=== PATIENT | male | born 1995 | race Caucasian/White ===

== ENCOUNTER 2017-09-18 23:22 | Emergency (ER) | payer BC ==
[2017-09-18 23:28] VITALS: BP 137/74
[2017-09-18] MEDS ORDERED: IBUPROFEN 800 MG TABLET PO ONE (23:40)
--- NOTE | 2017-09-19 00:13 | ER Document Report ---
ED General - General Chief Complaint: Hand Injury Stated Complaint: LEFT HAND INJURY Time Seen by Provider: 09/18/17 23:36 Mode of Arrival: Ambulatory Information source: Patient TRAVEL OUTSIDE OF THE [place] IN LAST 30 DAYS: No - HPI Notes: Otherwise healthy 21-year-old white male presents to the emergency department with report that he tripped at about 1800 and struck his nondominant hand up against a metal cabinet handle injuring his left wrist. He denies any other injury, reporting no elbow pain or shoulder pain or numbness or paresthesia. No head injury or neck pain. No back pain. - Related Data Allergies/Adverse Reactions: No Known Allergies Allergy (Verified 09/18/14 12:08) Past Medical History - General Information source: Patient - Social History Smoking Status: Never Smoker Frequency of alcohol use: None Drug Abuse: None Lives with: Family Family History: Reviewed & Not Pertinent - Immunizations Immunizations up to date: Yes Hx Diphtheria, Pertussis, Tetanus Vaccination: Yes Review of Systems - Review of Systems -: Yes All other systems reviewed and negative Physical Exam - Vital signs Vitals: Temp Pulse Resp BP Pulse Ox 97.6 F 60 14 137/74 H 99 09/18/17 23:27 09/18/17 23:27 09/18/17 23:27 09/18/17 23:27 09/18/17 23:27 - Notes Notes: Patient is in no apparent distress HEENT atraumatic neck nontender examination left upper extremity shows nonfocal shoulder and elbow exam. The hand has good range of motion in flexion and extension and good tendon function. The patient has contusion to the distal wrist mid aspect. No specific pain over the scaphoid region. No pain on axial load of the thumb. Patient has pain with extension through the wrist and hand. There is no crepitance or bony deformity. There is no proximal erythema or adenopathy noted. Course - Re-evaluation Re-evalutation: 09/19/17 00:40 X-rays negative. Wrist cockup splint is placed. No obvious evidence for fracture or scaphoid injury or other acute process. - Vital Signs Vital signs: Temp Pulse Resp BP Pulse Ox 97.6 F 60 14 137/74 H 99 09/18/17 23:27 09/18/17 23:27 09/18/17 23:27 09/18/17 23:27 09/18/17 23:27 Discharge - Discharge Clinical Impression: Left wrist sprain Qualifiers: Encounter type: initial encounter Qualified Code(s): S63.502A - Unspecified sprain of left wrist, initial encounter Condition: Stable Disposition: HOME, SELF-CARE Instructions: Wrist Sprain ([facility]) Additional Instructions: If you have any residual discomfort to the wrist after 2 weeks, then follow-up with orthopedics. Prescriptions: Ibuprofen [Motrin 800 mg Tablet] 800 mg PO Q8H PRN #30 tab PRN Reason: Referrals: MILI CARMONA DO [ACTIVE STAFF] - Follow up as needed
--- NOTE | 2017-09-19 00:21 | RADIOLOGY REPORT (SQ) ---
EXAM DESCRIPTION: 3 views of the left wrist CLINICAL HISTORY: L wrist injury, question scaphoid COMPARISON: None. FINDINGS: 3 views of the left wrist. No acute fracture or dislocation. Normal osseous mineralization. The scaphoid has normal appearance. The radius, capitate, lunate have appropriate alignment. IMPRESSION: 1. No acute fracture or dislocation.
== END 2017-09-19 00:48 | disposition home or self-care (01) ==
LOC: ER 23:22
DX: S63.502A Unspecified sprain of left wrist, initial encounter (principal); W22.03XA Walked into furniture, initial encounter
CPT/HCPCS: 99283; 73110; L3908